=== PATIENT | male | born 2000 | race Caucasian/White ===

== ENCOUNTER 2025-01-05 04:47 | Inpatient (IN) | payer OTHER ==
[~2025-01-05] VITALS: Ht 165.1 cm; Wt 77.3 kg
[2025-01-05] MEDS: diphenhydrAMINE 50 MG/ML VIAL IM ONE (05:05)
[2025-01-05] MEDS: HALOPERIDOL LACTATE 5 MG/ML VIAL IM ONE (05:05)
[2025-01-05 05:56] LABS: PLATELET COUNT, AUTOMATED 271 10^3/uL (150-450)
[2025-01-05] MEDS: NICOTINE 21 MG/24 HR 1 EA TRANSDERMAL TD ONE (06:03)
[2025-01-05 06:22] LABS: AMPHETAMINES LEVEL URINE NEGATIVE (NEGATIVE); BARBITURATES URINE NEGATIVE (NEGATIVE); BENZODIAZEPINES URINE NEGATIVE (NEGATIVE); CANNABINOIDS URINE NEGATIVE (NEGATIVE); COCAINE METABOLITE URINE NEGATIVE (NEGATIVE); METHADONE URINE NEGATIVE (NEGATIVE); OPIATES URINE NEGATIVE (NEGATIVE); PHENCYCLIDINE URINE NEGATIVE (NEGATIVE)
[2025-01-05 06:23] LABS: ETHYL ALCOHOL (ETHANOL) 0.178 % (0.000-0.010)
[2025-01-05 06:25] LABS: ALT/SGPT 31 U/L (7.0-40); AST/SGOT 26 U/L (<34); CALCIUM LEVEL 9.6 MG/DL (8.5-10.1); CARBON DIOXIDE LEVEL 23 MMOL/L (20-31); CHLORIDE LEVEL 105 MMOL/L (98-107); CREATININE FOR GFR 1.06 MG/DL (0.70-1.30); GLOMERULAR FILTRATION RATE > 90.0 (>60); POTASSIUM SERUM 4.2 MMOL/L (3.5-5.1); SALICYLATE LEVEL < 3.0 MG/DL (<30); SODIUM LEVEL 143 MMOL/L (136-145)
[2025-01-05] MEDS ORDERED: HOME MED LIST COMPLETE! XX SCH (09:25)
[2025-01-06] MEDS ORDERED: NICOTINE 21 MG/24 HR 1 EA TRANSDERMAL TD SCH (11:35)
[2025-01-06] MEDS: NICOTINE 21 MG/24 HR 1 EA TRANSDERMAL TD SCH (11:43)
[2025-01-06] MEDS ORDERED: MOM 30 ML SUSPENSION UDC PO PRN (16:10)
[2025-01-06] MEDS ORDERED: ACETAMINOPHEN 325 MG TAB PO PRN (16:10)
[2025-01-06] MEDS ORDERED: MAALOX 30 ML SUSP *UDC PO PRN (16:10)
[2025-01-06] MEDS ORDERED: IBUPROFEN 400 MG TAB PO PRN (16:10)
[2025-01-06 17:22] VITALS: BP 145/75; TEMP 97.2; O2SAT 99
[2025-01-06] MEDS: traZODone 50 MG TAB PO PRN (20:57)
[2025-01-06] MEDS: THIAMINE 100 MG TAB PO SCH (20:57)
[2025-01-06 22:10] VITALS: BP 155/74
[2025-01-07 06:33] VITALS: BP 145/72; TEMP 97.2; O2SAT 100
[2025-01-07] MEDS: FOLIC ACID 1 MG TAB PO SCH (09:51)
[2025-01-07] MEDS: MULTIVITAMINS/MINERALS THERAP 1 TAB PO SCH (09:51)
[2025-01-07] MEDS: NICOTINE 21 MG/24 HR 1 EA TRANSDERMAL TD SCH (13:52)
[2025-01-07 15:31] VITALS: BP 140/88; TEMP 98.1; O2SAT 98
[2025-01-07 21:58] VITALS: BP 110/84
[2025-01-08 06:33] VITALS: BP 128/71; TEMP 97.2; O2SAT 99
[2025-01-08 06:37] VITALS: BP 128/71
== END 2025-01-08 10:50 | disposition home or self-care (01) | DRG 881 ==
LOC: M ED 04:47 → EDBD 04:47 → M ED INP 01-06 16:07 → M PSY 01-06 17:13
PROVIDERS: ADMIT Psychiatry & Neurology Neurology; ATTEND Psychiatry & Neurology Neurology
DX: F32.A Depression, unspecified (principal); R45.851 Suicidal ideations; F10.10 Alcohol abuse, uncomplicated; F17.200 Nicotine dependence, unspecified, uncomplicated